=== PATIENT | female | born 1975 | race Caucasian/White ===

== ENCOUNTER 2024-07-04 06:58 | Day surgery (SDC) | payer MEDICAID, OTHER ==
[2024-07-04] MEDS ORDERED: MEPERIDINE 100 MG INJ. 100 MG/ML VIAL ONE (07:43)
[2024-07-04] MEDS ORDERED: MIDAZOLAM HCL 5 MG/5 ML VIAL ONE (07:43)
[2024-07-04] MEDS ORDERED: SIMETHICONE 40 MG/0.6 ML ML ONE (07:56)
[2024-07-04] MEDS ORDERED: BENZOCAINE 20% 0.5mL UD SPRAY MM ONE (08:02)
[2024-07-04 08:50] LABS: HCG,QUAL RESULT NEGATIVE (NEGATIVE)
[2024-07-04 13:20] VITALS: BP_SYST 146; PULSE 68; RESP 20; TEMP 98.6; O2SAT 99
== END 2024-07-04 10:30 | disposition home or self-care (01) ==
LOC: SDS 06:58 → SMU 07:03 → SDS 10:30
PROVIDERS: ATTEND Internal Medicine
DX: R19.4 Change in bowel habit (principal); D12.3 Benign neoplasm of transverse colon; K29.50 Unspecified chronic gastritis without bleeding; K31.A0 Gastric intestinal metaplasia, unspecified; K63.89 Other specified diseases of intestine; D64.9 Anemia, unspecified; K64.8 Other hemorrhoids; R10.13 Epigastric pain; I10 Essential (primary) hypertension; K21.9 Gastro-esophageal reflux disease without esophagitis; Z98.891 History of uterine scar from previous surgery; Z90.49 Acquired absence of other specified parts of digestive tract; Z79.899 Other long term (current) drug therapy
CPT/HCPCS: 45380; 45385; 43239; 99152; 84703; 88305; 88312; 88313; 99153; G0378; J2250; J2175